=== PATIENT | male | born 1980 | race Caucasian/White ===

== ENCOUNTER 2017-11-04 12:30 | Outpatient (CLI) ==
--- NOTE | 2017-11-04 13:58 | DI ---
EXAM: Single PA view of the chest and four views of the right ribs HISTORY: Right chest wall pain post fall. COMPARISON: None FINDINGS: Cardiomediastinal silhouette is normal. The lungs are clear. The right ribs demonstrate n o cortical irregularity or displaced fracture. There is no lytic or blastic lesion. IMPRESSION: No acute abnormality or displaced fracture of the right ribs.
== END 2017-11-04 12:31 | disposition home or self-care (01) ==
LOC: RAD 12:30
PROVIDERS: ATTEND Family Medicine
DX: R07.89 Other chest pain (principal); W19.XXXA Unspecified fall, initial encounter